=== PATIENT | female | born 1935 | race Caucasian/White ===

== ENCOUNTER 2025-03-19 08:11 | Outpatient (RCR) | payer OTHER, SELFPAY | END 2025-03-19 23:59 | disposition home or self-care (01) | LOC: RPT 08:11 | PROVIDERS: ATTENDING PHYSICIAN Urology; FAMILY PHYSICIAN Family Medicine | DX: N30.10 Interstitial cystitis (chronic) without hematuria (principal); N39.41 Urge incontinence; M62.89 Other specified disorders of muscle; N95.8 Other specified menopausal and perimenopausal disorders; Z73.6 Limitation of activities due to disability; R26.89 Other abnormalities of gait and mobility | CPT/HCPCS: 97163; 97530 ==

== ENCOUNTER 2025-04-16 08:25 | Outpatient (RCR) | payer OTHER, SELFPAY | END 2025-04-16 23:59 | disposition home or self-care (01) | LOC: RPT 08:25 | PROVIDERS: ATTENDING PHYSICIAN Urology; FAMILY PHYSICIAN Family Medicine | DX: N30.10 Interstitial cystitis (chronic) without hematuria (principal); N39.41 Urge incontinence; M62.89 Other specified disorders of muscle; N95.8 Other specified menopausal and perimenopausal disorders; Z73.6 Limitation of activities due to disability; R26.89 Other abnormalities of gait and mobility | CPT/HCPCS: 97110; 97112; 97140; 97530 ==

== ENCOUNTER 2025-05-07 12:46 | Outpatient (RCR) | payer OTHER, SELFPAY | END 2025-05-14 23:59 | disposition home or self-care (01) | LOC: RPT 12:46 | PROVIDERS: ATTENDING PHYSICIAN Urology; FAMILY PHYSICIAN Family Medicine | DX: N30.10 Interstitial cystitis (chronic) without hematuria (principal); N39.41 Urge incontinence; M62.89 Other specified disorders of muscle; N95.8 Other specified menopausal and perimenopausal disorders; Z73.6 Limitation of activities due to disability; R26.89 Other abnormalities of gait and mobility | CPT/HCPCS: 97014; 97110; 97112; 97140; 97530 ==

== ENCOUNTER → 2025-06-20 11:14 | Outpatient (REF) | payer OTHER, SELFPAY | LOC: RAD 11:14 | PROVIDERS: ATTENDING PHYSICIAN Physician Assistant; FAMILY PHYSICIAN Family Medicine | DX: N93.9 Abnormal uterine and vaginal bleeding, unspecified (principal) | CPT/HCPCS: 76830; 76856 ==